=== PATIENT | male | born 1960 | race Caucasian/White ===

== ENCOUNTER 2023-02-08 14:37 | Emergency (ER) | payer MEDICARE, MEDICAID ==
[~2023-02-08] VITALS: Ht 165.1 cm; Wt 68.2 kg
[2023-02-08 14:55] VITALS: TEMP 98.4
[2023-02-08 15:41] VITALS: BP 148/96; PULSE 92; RESP 16; O2SAT 95
[2023-02-08] MEDS ORDERED: AMOX-580 PO ×3 (16:49→17:05)
== END 2023-02-08 17:07 | disposition home or self-care (01) ==
LOC: ER 14:39
DX: H66.003 Acute suppurative otitis media without spontaneous rupture of ear drum, bilateral (principal)
CPT/HCPCS: 99283

== ENCOUNTER 2025-02-22 08:56 | Day surgery (SDC) | payer MEDICARE, MEDICAID ==
[~2025-02-22] VITALS: Ht 165.1 cm; Wt 54.9 kg
[2025-02-22] MEDS: LIDOcaine 2% Viscous 15ml cup MM ONE (07:38)
[~2025-02-22 08:56] MED LIST: CARI6CAP PO; FAMO40TA7 PO; OLAN15TA97 PO; ringers solution, lacted 1,000 ML IV SCH
--- NOTE | 2025-02-22 09:55 | ELECTROCARDIOGRAPH REPORT ---
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 LIBBY Dunbar Measurements Intervals [place] Rate: 57 P: 66 MD: 132 QRS: 24 QRSD: 99 T: 49 QT: 436 QTc: 425 Interpretive Statements Sinus bradycardia Electronically Signed On 02-22-2025 13:52:[address] LIBBY Dunbar Please click the below link to view image of tracing.
[2025-02-22] MEDS ORDERED: fentaNYL/PF 50MCG/1 ML 2ML syringe ONE (13:07)
[2025-02-22] MEDS ORDERED: MIDAZolam 1 MG/ML 5ML VIAL ONE ×2 (13:07→13:08)
[2025-02-22] MEDS: MIDAZolam 1 MG/ML 5ML VIAL IV ONE (13:10)
[2025-02-22] MEDS: fentaNYL/PF 50MCG/1 ML 2ML syringe IV ONE (13:10)
[2025-03-04 13:15] VITALS: BP 136/72; PULSE 62; RESP 16; O2SAT 97
[2025-03-04 13:25] VITALS: BP 131/71; PULSE 62; RESP 16; O2SAT 97
[2025-03-04 13:35] VITALS: BP 129/71; PULSE 60; RESP 16; O2SAT 97
[2025-03-04 13:45] VITALS: BP 133/78; PULSE 62; RESP 16; O2SAT 97
== END 2025-02-22 14:05 | disposition home or self-care (01) ==
LOC: GI LAB 08:56
PROVIDERS: ATTEND Internal Medicine Gastroenterology
DX: R13.10 Dysphagia, unspecified (principal); K44.9 Diaphragmatic hernia without obstruction or gangrene; K21.9 Gastro-esophageal reflux disease without esophagitis; R00.1 Bradycardia, unspecified; Z79.899 Other long term (current) drug therapy
CPT/HCPCS: 43239; 88305; 88342; 93005; A4620; J2250; J3010; J7120; Z7512; Z7610; 99152